=== PATIENT | male | born 1950 | race Caucasian/White ===

== ENCOUNTER 2022-04-17 12:54 | Emergency (ER) | payer BC, MEDICARE ==
[~2022-04-17] VITALS: Ht 175.3 cm; Wt 81.6 kg
[~2022-04-17 12:54] MED LIST: ASPI-992 PO; ATOR20TA PO; ESOM40CA PO; HYDR-3972 PO; LOSA50TA39 PO; MAGN64TA9 PO; METO50TA16 PO
[2022-04-17] MEDS ORDERED: TDAP [DIPH/PERTUSSIS/TET] 0.5 ML VIAL IM ONE (13:59)
[2022-04-17] MEDS: TDAP [DIPH/PERTUSSIS/TET] 0.5 ML VIAL IM ONE (14:02)
[2022-04-17 15:19] VITALS: BP 131/82
--- NOTE | 2022-04-17 15:20 | NUR ---
Patient discharged to home in stable condition. Written and verbal after care instructions given. Dressing on head clean/dry/intact. Patient verbalizes understanding of instruction.
== END 2022-04-17 15:20 | disposition home or self-care (01) ==
LOC: ER 13:00
DX: S01.311A Laceration without foreign body of right ear, initial encounter (principal); S01.81XA Laceration without foreign body of other part of head, initial encounter; I10 Essential (primary) hypertension; Z88.8 Allergy status to other drugs, medicaments and biological substances; Z79.899 Other long term (current) drug therapy; W01.0XXA Fall on same level from slipping, tripping and stumbling without subsequent striking against object, initial encounter; Y93.89 Activity, other specified; Y92.89 Other specified places as the place of occurrence of the external cause; Y99.8 Other external cause status
CPT/HCPCS: 12014; 70450; 72125; 90471; 90715; 99284; A6403

== ENCOUNTER 2022-04-26 11:16 | Emergency (ER) | payer MEDICARE, BC ==
[~2022-04-26] VITALS: Ht 175.3 cm; Wt 83.9 kg
[2022-04-26 11:27] VITALS: BP 134/78
--- NOTE | 2022-04-26 12:12 | NUR ---
Patient discharged to home in stable condition. Written and verbal after care instructions given. Patient verbalizes understanding of instruction.
== END 2022-04-26 12:13 | disposition home or self-care (01) ==
LOC: ER 11:29
DX: Z48.02 Encounter for removal of sutures (principal); S01.81XD Laceration without foreign body of other part of head, subsequent encounter; S01.311D Laceration without foreign body of right ear, subsequent encounter; I10 Essential (primary) hypertension; Z88.8 Allergy status to other drugs, medicaments and biological substances; Z79.899 Other long term (current) drug therapy; W01.0XXD Fall on same level from slipping, tripping and stumbling without subsequent striking against object, subsequent encounter